=== PATIENT | male | born 1965 | race Two or more races ===

== ENCOUNTER 2023-01-22 13:22 | Emergency (ER) | payer OTHER ==
[~2023-01-22] VITALS: Ht 185.4 cm; Wt 74.8 kg
[~2023-01-22 13:22] MED LIST: PROTONIX20 MG PO
[2023-01-22] MEDS ORDERED: DICLOFENAC POTA50 MG PO (16:03)
[2023-01-22] MEDS ORDERED: CYCLOBENZAPRINE10 MG PO (16:03)
== END 2023-01-22 16:09 | disposition home or self-care (01) ==
LOC: ER 13:22
DX: M54.59 Other low back pain (principal); M62.830 Muscle spasm of back